=== PATIENT | female | born 1960 | race American Indian/Alaskan Native ===

== ENCOUNTER 2017-12-28 09:29 | Emergency (ER) | payer SELFPAY ==
[2017-12-28 10:03] VITALS: BP 177/108
== END 2017-12-28 10:00 | disposition left against medical advice (07) ==
LOC: ED 09:29
DX: R22.0 Localized swelling, mass and lump, head (principal); Z53.21 Procedure and treatment not carried out due to patient leaving prior to being seen by health care provider